=== PATIENT | male | born 1975 | race Caucasian/White ===

== ENCOUNTER 2021-02-11 11:14 | Outpatient (CLI) | payer BC, SELFPAY ==
--- NOTE | ~2021-02-11 | XR_ITS ---
XR chest 2V DATE: 02/11/2021 11:37 INDICATION: Cough. History of smoking for 20 years. TECHNIQUE: PA and lateral views COMPARISON: 08/07/2013 PA chest FINDINGS: Normal heart size. No hilar or mediastinal enlargement. Moderate hyperinflation of the lungs. No pulmonary infiltrate or consolidation, pleural effusion or p ulmonary vascular congestion or pneumothorax is detected. There is mild levoscoliosis of the thoracic spine. IMPRESSION: Moderate hyperinflation; no active cardiopulmonary disease Reviewed, dictated and finalized at location A. [facility]
== END 2021-02-11 11:15 | disposition home or self-care (01) ==
LOC: ANHIMG 11:23
PROVIDERS: PCP Family Medicine; Visit Provider Family Medicine
DX: R05.9 Cough, unspecified (principal); M41.9 Scoliosis, unspecified
CPT/HCPCS: 71046

== ENCOUNTER 2021-02-23 22:03 | Emergency (ER) | payer BC, SELFPAY ==
--- NOTE | ~2021-02-23 | XR_ITS ---
XR knee LT 2V DATE: 02/24/2021 01:21 INDICATION: Injury, generalized left knee pain TECHNIQUE: AP and crosstable lateral views COMPARISON: None FINDINGS: Large lipohemarthrosis is noted in association with a comminuted intra-articular fracture o f the lateral tibial plateau with up to 8 mm lateral displacement of the lateral fragments. IMPRESSION: Comminuted laterally displaced lateral tibial plateau fracture with prominent lipohemarth rosis Reviewed, dictated and finalized at location A. ING ALLEY ATTENDANT IMPRESSION: Comminuted laterally displaced lateral tibial plateau fracture with prominent lipohemarthrosis
[2021-02-23 22:15] VITALS: BP 161/73; PULSE 87; RESP 18; TEMP 36.7; O2SAT 100
[2021-02-24 01:48] VITALS: BP 189/100; PULSE 87; RESP 20; TEMP 36.3; O2SAT 97
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
[2021-02-24] MEDS: MORPHINE SULFATE (*CRX) 4 MG/ML INJ IV PUSH (02:40)
[2021-02-24 03:12] VITALS: BP 150/92; PULSE 84; RESP 17; O2SAT 96
== END 2021-02-24 03:14 | disposition short-term general hospital (02) ==
PROVIDERS: Emergency Provider Emergency Medicine; PCP Family Medicine
DX: S82.142A Displaced bicondylar fracture of left tibia, initial encounter for closed fracture (principal); F17.210 Nicotine dependence, cigarettes, uncomplicated; V86.56XA Driver of dirt bike or motor/cross bike injured in nontraffic accident, initial encounter
CPT/HCPCS: 73560; 96374; 99285; J2270

== ENCOUNTER 2021-03-14 14:47 | Outpatient (CLI) | payer BC, SELFPAY ==
--- NOTE | 2021-03-17 15:24 | WPDPFTINT ---
PFT Procedure Performed PFT Procedure Performed Spirometry with Pre/Post Bronchodilator Plethysmography (Lung Vol) Diffusing Cap (DLCO) Flow Vol Loop PFT Interpretation This is a pulmonary function test with pre and post-bronchodilator spirometry, plethysmography and diffusing capacity. The test was performed and results interpreted in accordance with the 2019 and 2005 ATS/ERS Task Force guidelines respectively using the Global Lung Function Initiative-2012 reference equations. Patient demonstrated good effort and cooperation. Reproducibility criteria were met. The quality of the pre bronchodilator spirometry maneuver was Grade A and post bronchodilator spirometry maneuver was Grade A. Findings: Spirometry: The contour the inspiratory and expiratory flow tracing are normal. The pre bronchodilator FVC is 5.99 L, 122% predicted. The pre bronchodilator FEV1 is 4.61 L, 118% predicted. The pre bronchodilator FEV1: FVC ratio is 77%. The post bronchodilator FVC is 5.93 L, representing 1% decrease. Post bronchodilator FEV1 is 4.72, representing a 2% increase. The post bronchodilator FEV1: FVC ratio was 80%. Plethysmography: The total lung capacity is 7.48 L, 111% predicted. The functional residual capacity is 3.03 L, 89% predicted. The residual volume is 1.49 L, 79% predicted. Diffusing capacity: The diffusion capacity on adjusted for hemoglobin is 27.9, 90% predicted. The diffusing capacity adjusted for alveolar volume is 3.91, 83% predicted. Impression: The spirometry is normal without evidence of an obstructive abnormality. There is no significant improvement after inhaling a single dose of albuterol. The lung volumes are normal. The diffusing capacity is normal. There are no prior studies for comparison
== END 2021-03-14 14:48 | disposition home or self-care (01) ==
LOC: ANHPFT 14:49
PROVIDERS: PCP Family Medicine; Visit Provider Nurse Practitioner Gerontology
DX: F17.210 Nicotine dependence, cigarettes, uncomplicated (principal)
CPT/HCPCS: 94060; 94726; 94729

== ENCOUNTER 2022-01-13 16:56 | Outpatient (CLI) | payer BC, SELFPAY ==
--- NOTE | ~2022-01-13 | XR_ITS ---
XR lumbar spine min 4V DATE: 01/13/2022 17:28 INDICATION: Twisted back. Back pain, radiculopathy. TECHNIQUE: Standing AP, lateral, coned lateral lumbosacral and bilateral oblique views COMPARISON: None FINDINGS: There is approximately 30 degrees rotatory dextroscoliosis of the lower thoracic and lumbar spine. No spondylolysis or spondylolisthesis. No fracture or bone destruction. There is multilevel moderate degenerative disc disease at L1-2 through L3-4, mild degenerative disease at L4-5, relatively sparing L5-S1. The sacroiliac joints are intact. IMPRESSION: Approximately 30 degrees rotatory dextroscoliosis of the thoracolumbar spine Moderate degenerative disc disease at L1-2 through L3-4, mild degenerative disc disease at L4-5, with relative sparing of L5-S1 Reviewed, dictated and finalized at location B. ICAL DRESSING MAKER IMPRESSION: Approximately 30 degrees rotatory dextroscoliosis of the thoracolum bar spine Moderate degenerative disc disease at L1-2 through L3-4, mild degenerative disc disease at L4-5, with relative sparing of L5-S1
== END 2022-01-13 16:57 | disposition home or self-care (01) ==
PROVIDERS: PCP Family Medicine; Visit Provider Family Medicine
DX: M51.16 Intervertebral disc disorders with radiculopathy, lumbar region (principal); M41.9 Scoliosis, unspecified; T14.90XA Injury, unspecified, initial encounter
CPT/HCPCS: 72110

== ENCOUNTER 2024-04-26 08:30 | Outpatient (CLI) | payer BC, SELFPAY ==
--- OUTSIDE RECORDS SUMMARY | 2024-04-26 08:59 | XMS_ITS | Clinical Summary ---
Author Organization [facility] Address [address] [place] [address] Care Team Providers Care Supervisor Statement Clerks Name Role Phone Unavailable Primary Care Provider Unavailabl e Social History Tobacco Use Types Packs/Day Years Used Date Smoking Tobacco: Never Assessed Sex and Gender Information Value Date Recorded Sex Assigned at Not on file Legal Sex Male 8:27 PM CDT Gender Identity Not on file Sexual Orientation Not on file Plan of Treatment Health Maintenance Due Date Last Done Comments Colorectal Cancer Screening Colonoscopy (10 Years) 1975 Annual Physical 1978 Hepatitis C 1993 DTaP, Tdap and Td Vaccines ( 1 - Tdap) 1994 Hepatitis B Vaccines (1 of 3 - 19+ 3-dose series) 1994 COVID-19 Vaccine (2023-2 5 season) 2023 Influenza Adult (#1) 2023 Meningococcal B Vaccine Aged Out No l onger eligible based on patient's age to complete this topic Meningococcal Vaccine Aged Out No madi elen eligible based on patient's age to complete this topic Pneumococcal Vaccine: Pediat rics (0 to 5 Years) and At-Risk Patients (6 to 64 Years) Aged Out No longer eligible b ased on patient's age to complete this topic RSV Immunizations Under 20 Months Aged Out No longer eligible based on patient's age to complete this topic
--- OUTSIDE RECORDS SUMMARY | 2024-04-26 08:59 | XMS_ITS | Referral Summary ---
Author Organization [facility] Address [address] [place] [address] Care Team Providers Care Dean Of Students Name Role Phone Kay Guardado MD Primary Care Provider Allergies No known active allergies Medications cyclobenzaprine (FLEXERIL) 10 mg tabletIndicatio ns:Muscle Spasm Take 1 tablet (10 mg total) by mouth nightly as needed for muscle spasms 5 tablet 2 Active clobetasoL (TEMOVATE) 0.05 % cream Apply topically as needed 2 Active multivitamin capsuleIndicati ons:Vitamin Deficiency Prevention Take 1 capsule by mouth daily Active cholecalciferol (VITAMIN D-3) 5,000 unit capsuleIndicati ons:Vitamin D Deficiency Take 5,000 Units by mouth daily Active zinc 50 mg tabletIndicatio ns:supplement Take 1 tablet by mouth daily Active varenicline (CHANTIX AMY) 0.5 mg (11)- 1 mg (42) tabletIndicatio ns:Smoking Cessation Take by mouth daily Active esomeprazole DR (NexIUM) 40 mg capsule Take 1 capsule (40 mg total) by mouth daily before breakfast To protect stomach while taking aspirin. 14 capsule 2 Active senna-docusate (PERICOLACE) 8.6-50 mg Take 1 tablet by mouth daily 30 tablet 1 2 Active HYDROcodone-nga taminophen (NORCO) 5-325 mg per tabletIndicatio ns:Pain Take 1 tablet by mouth every 6 (six) hours as needed for pain 28 tablet 2 Active Active Problems Problem Noted Date Diagnosed Date Fracture of tibial plateau 02/24/2021 Overview (02/24/2021): Added automatically from request for surgery [id number] Immunizations Immunization Administration Dates Next Due Tdap 02/24/2021 Social History Tobacco Use Types Packs/Day Years Used Date Smoking Tobacco: Every Day Cigarettes Smokeless Tobacco: Never Tobacco Cessation:Ready to Q uit: No; Counseling Given: No AUDIT-C Answer Date Recorded Q1: How often do you have a drink containing alc ohol? 2-4 times a month 02/24/2021 Q2: How many drinks containi ng alcohol do you have on a typical day when you are drinking? 5 or 6 02/24/2021 Q3: How often do you have si x or more drinks on one occasion? Never 02/24/2021 Sex and Gender Information Value Date Recorded Sex Assigned at Not on file Legal Sex Male 3:48 PM BUTTONER Gender Identity Not on file Sexual Orientation Not on file Last Filed Vital Signs Vital Sign Reading Time Taken Comments Blood Pressure 125/104 02/27/2021 1:20 PM BUTTONER Pulse 80 02/27/2021 1:20 PM BUTTONER Temperature 36.4 C (97.5 F) 02/27/2021 10:30 AM BUTTONER Respiratory Rate 17 02/27/2021 1:20 PM BUTTONER Oxygen Saturation 100% 02/27/2021 1:20 PM BUTTONER Inhaled Oxygen Concentration - - Weight 106.6 kg (235 lb) 02/24/2021 4:20 PM BUTTONER Height 177.8 cm (5' 10 ) 02/24/2021 4:20 PM BUTTONER Body Mass Index 33.72 02/24/2021 4:20 PM BUTTONER Plan of Treatment Not on file Medical Devices Implanted Type Area Sawdust Machine Operator Device Identifier Shelf Expiration Date Model / Serial / Lot Alexandra [employer] Nephew/Richco/Ort ho [id number] Evos 3.5mm 60mm Self Tap Lock Screw Bone Sterile - [id number] Implanted:Qty: 1 on 02/27/2021 by Maddison Calvert MD at [facility] Left: Leg Alexandra [employer] Nephew/Richco/O rtho [id number] / / Synthes 07.704.005s Norian Drillable Inject Reinforced Bioresorbable Biocompatible - [id number] Implanted:Qty: 1 on 02/27/2021 by Maddison Calvert MD at [facility] Left: Leg Synthes I [id number] 03/07/2022 07.704.005S / / Alexandra [employer] Nephew/Richco/Ort ho [id number] Evos 113x11.5x3.6mm 32.3x1.9mm 8 Hole Low Profile Variable Angle - [id number] Implanted:Qty: 1 on 02/27/2021 by Maddison Calvert MD at [facility] Left: Leg [employer] Nephew/Richco/O rtho [id number] / / Alexandra [employer]hew/Richco/Ort ho [id number] Evos 3.5mm 42mm Self Tap Cortex Screw Bone Sterile - [id number] Implanted:Qty: 1 on 02/27/2021 by Maddison Calvert MD at [facility] Left: Leg [employer]hew/Richco/O rtho [id number] / / Alexandra [employer]hew/Richco/Ort ho [id number] Evos 3.5mm 34mm Self Tap Cortex Screw Bone Sterile - [id number] Implanted:Qty: 2 on 02/27/2021 by Maddison Calvert MD at [facility] Left: Leg [employer]hew/Richco/O rtho [id number] / / Alexandra [employer]hew/Richco/Ort ho [id number] Evos 3.5mm 80mm Self Tap Lock Screw Bone Sterile - [id number] Implanted:Qty: 3 on 02/27/2021 by Maddison Calvert MD at [facility] Left: Leg [employer]hew/Richco/O rtho [id number] / / Explanted Type Area Sawdust Machine Operator Device Identifier Shelf Expiration Date Model / Serial / Lot [employer] [id number] K Wire Fix Trocar Point Smooth Sgl End Ss 0.983f8po - [id number] Explanted:Qty: 4 on 02/27/2021 at [facility] [employer] [id number] / / [employer] [id number] Janak .062in 9in Trocar Point One End Orthopedic Wire - [id number] Explanted:Qty: 3 on 02/27/2021 at [facility] Left: Leg [employer] [id number] / / Alexandra [employer] Nephew/Richco/Or tho [id number] Evos 3.5mm 50mm Self Tap Cortex Screw Bone Sterile - [id number] Explanted:Qty: 1 on 02/27/2021 at [facility] Left: Leg [employer]hew/Richco/Or tho [id number] / / Alexandra [employer] Nephew/Richco/Or tho [id number] Evos 3.5mm 38mm Self Tap Cortex Screw Bone Sterile - [id number] Explanted:Qty: 1 on 02/27/2021 at [facility] Left: Leg [employer]hew/Richco/Or tho [id number] / / Procedures Procedure Name Priority Date/Time Associated Diagnosis Comments HEPATITIS C ANTIBODY Routine 02/27/2021 5:03 PM BUTTONER from Last 3 Months or Most Recently Relevant to Health Maintenance Results * Hepatitis C antibody (02/27/2021 5:03 PM BUTTONER) Hep C Ab Nonreactive Nonreactive [facility] Comment:Antibodies to HCV no t detected. Does NOT exclude the possibility of recent exposure to HCV. Blood 02/27/2021 5:03 PM BUTTONER 02/27/2021 5:22 PM BUTTONER us Notinfile Unknown LAB MICROBIOLOGY - GENERAL ORD ERABLES Edited Result - Final [facility] Department [place] [address] from Last 3 Months or Most Recently Relevant to Health Maintenance Insurance [employer] Address: [address] [place] [address] [place] Care Teams Dean Of Students Relationship Specialty Start Date End Date Kay Guardado MD [address] [facility] [address] [place] [address] PCP - General 02/24/21
--- OUTSIDE RECORDS SUMMARY | 2024-04-26 08:59 | XMS_ITS | Clinical Summary ---
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 Gender Identity Not on file Sexual Orientation Not on file Obstetrics History Last Filed Vital Signs Vital Sign Reading Time Taken Comments Blood Pressure 125/104 02/27/2021 1:20 PM SHOEMAKER APPRENTICE Pulse 80 02/27/2021 1:20 PM SHOEMAKER APPRENTICE Temperature 36.4 C (97.5 F) 02/27/2021 10:30 AM SHOEMAKER APPRENTICE Respiratory Rate 17 02/27/2021 1:20 PM SHOEMAKER APPRENTICE Oxygen Saturation 100% 02/27/2021 1:20 PM SHOEMAKER APPRENTICE Inhaled Oxygen Concentration - - Weight 106.6 kg (235 lb) 02/24/2021 4:20 PM SHOEMAKER APPRENTICE Height 177.8 cm (5' 10 ) 02/24/2021 4:20 PM SHOEMAKER APPRENTICE Body Mass Index 33.72 02/24/2021 4:20 PM SHOEMAKER APPRENTICE Plan of Treatment Health Maintenance Due Date Last Done Comments Colon Cancer Screening-Colonoscopy 1975 Depression Screening 1975 Hepatitis B Screening 1993 Regular Well Visit/Exam 18-64 1993 Pneumococcal vaccine <65 (1 of 2 - PCV) 1994 Influenza Vaccine (#1) 2023 DTaP/Tdap/Td Vaccine (2 - Td or Tdap) 02/24/2031 Hepatitis C Screening Completed 02/27/2021 Medical Devices Implanted Type Area Office Electrician Device Identifier Shelf Expiration Date Model / Serial / Lot [employer]/Richco/Ort ho [id number] Evos 3.5mm 60mm Self Tap Lock Screw Bone Sterile - [id number] Implanted:Qty: 1 on 02/27/2021 by Maddison Calvert MD at [facility] Left: Leg [employer] Nephew/Richco/O rtho [id number] / / Synthes 07.704.005s Norian Drillable Inject Reinforced Bioresorbable Biocompatible - [id number] Implanted:Qty: 1 on 02/27/2021 by Maddison Calvert MD at [facility] Left: Leg Synthes I [id number] 03/07/2022 07.704.005S / / Alexandra [employer] Nephew/Richco/Ort ho [id number] Evos 113x11.5x3.6mm 32.3x1.9mm 8 Hole Low Profile Variable Angle - [id number] Implanted:Qty: 1 on 02/27/2021 by Maddison Calvert MD at [facility] Left: Leg [employer]hew/Richco/O rtho [id number] / / Alexandra [employer] Nephew/Richco/Ort ho [id number] Evos 3.5mm 42mm Self Tap Cortex Screw Bone Sterile - [id number] Implanted:Qty: 1 on 02/27/2021 by Maddison Calvert MD at [facility] Left: Leg [employer]hew/Richco/O rtho [id number] / / Alexandra [employer] Nephew/Richco/Ort ho [id number] Evos 3.5mm 34mm Self Tap Cortex Screw Bone Sterile - [id number] Implanted:Qty: 2 on 02/27/2021 by Maddison Calvert MD at [facility] Left: Leg [employer]hew/Richco/O rtho [id number] / / Alexandra [employer] Nephew/Richco/Ort ho [id number] Evos 3.5mm 80mm Self Tap Lock Screw Bone Sterile - [id number] Implanted:Qty: 3 on 02/27/2021 by Maddison Calvert MD at [facility] Left: Leg [employer] Nephew/Richco/O rtho [id number] / / Explanted Type Area Office Electrician Device Identifier Shelf Expiration Date Model / Serial / Lot [employer] [id number] K Wire Fix Trocar Point Smooth Sgl End Ss 0.149y0bl - [id number] Explanted:Qty: 4 on 02/27/2021 at [facility] [employer] [id number] / / [employer] [id number] Janak .062in 9in Trocar Point One End Orthopedic Wire - [id number] Explanted:Qty: 3 on 02/27/2021 at [facility] Left: Leg [employer] [id number] / / Alexandra [employer] Nephew/Richco/Or tho [id number] Evos 3.5mm 50mm Self Tap Cortex Screw Bone Sterile - [id number] Explanted:Qty: 1 on 02/27/2021 at [facility] Left: Leg [employer]hew/Richco/Or tho [id number] / / Alexandra [employer]hew/Rich[employer]/Or tho [id number] Evos 3.5mm 38mm Self Tap Cortex Screw Bone Sterile - [id number] Explanted:Qty: 1 on 02/27/2021 at [facility] Left: Leg [employer] Nephew/Richco/Or tho [id number] / / Procedures Procedure Name Priority Date/Time Associated Diagnosis Comments HEPATITIS C ANTIBODY Routine 02/27/2021 5:03 PM SHOEMAKER APPRENTICE from Last 3 Months or Most Recently Relevant to Health Maintenance Results * Hepatitis C antibody (02/27/2021 5:03 PM SHOEMAKER APPRENTICE) Hep C Ab Nonreactive Nonreactive [facility] Comment:Antibodies to HCV no t detected. Does NOT exclude the possibility of recent exposure to HCV. Blood 02/27/2021 5:03 PM SHOEMAKER APPRENTICE 02/27/2021 5:22 PM SHOEMAKER APPRENTICE us Notinfile Unknown LAB MICROBIOLOGY - GENERAL ORD ERABLES Edited Result - Final [facility] One [facility] Department [place] [address] from Last 3 Months or Most Recently Relevant to Health Maintenance Insurance [employer] Address: [facility] [address] [place] [address] [place] Care Teams Cylinder Inspector And Tester Relationship Specialty Start Date End Date Kay Guardado MD [address] [facility] [address] [place] [address] PCP - General 02/24/21
[2024-04-26 09:05] LABS: Hemoglobin 15.7 g/dL (14.0-18.0); Mean Corpuscular HGB Conc 34.1 g/dl (32-36); Mean Corpuscular Hemoglobin 31.1 pg (26-34); Mean Corpuscular Volume 91.1 fl (80-100); Platelet Count Result 265 k/mm3 (150-375); Red Blood Count 5.05 M/mm3 (4.6-6.20); Red Cell Distribution Width 12.4 % (11.5-14.5)
[2024-04-26 09:18] LABS: Add Urine Microscopic? YES; Appearance Urine Clear (Clear); Bacteria Urine None Seen /hpf; Bilirubin Urine Negative (Negative); Blood Urine Negative (Negative); Color Urine Yellow (Yellow); Glucose Urine UA Negative (Negative); Ketones Urine Negative (Negative); Leukocyte Esterase Ur Negative LEU/UL (Negative); Mucus Urine Present /lpf; Need Manual Microscopic Reviewed; Nitrate Urine Negative (Negative); Non Pathogenic Casts 0-2; Protein Urine Trace mg/dL (Negative); Specific Grav Ur 1.028 (1.001-1.035); Squamous Epithelial Cell Urine None Seen /hpf (Few); WBC Urine 0-5 /hpf (0-3); pH Urine 6.5 (5.0-9.0)
[2024-04-26 09:27] LABS: Alanine Aminotransferase 30 U/L (6-50); Albumin Level 4.5 g/dL (3.5-5.1); Alkaline Phosphatase 92 U/L (38-126); Anion Gap 8 mmol/L (4-12); Aspartate Amino Transferase 30 U/L (17-59); Bilirubin,Total 0.7 mg/dL (0.2-1.3); Blood Urea Nitrogen 14 mg/dL (9-20); Calcium 9.6 mg/dL (8.4-10.2); Carbon Dioxide 29 mmol/L (22-30); Chloride 104 mmol/L (98-107); Cholesterol 183 mg/dL (0-200); Estimated Glomerular Filt Rate > 60; Glucose 104 mg/dL (65-110); HDL Direct 38 mg/dL; Sodium 141 mmol/L (137-145); Triglycerides 187 mg/dL (<150)
[2024-04-26 09:38] LABS: LDL Cholesterol Direct 106 mg/dL
== END 2024-04-26 08:31 | disposition home or self-care (01) ==
LOC: ANHLAB 08:33
PROVIDERS: PCP Family Medicine; Visit Provider Physician Assistant Medical
DX: Z00.00 Encounter for general adult medical examination without abnormal findings (principal); E78.5 Hyperlipidemia, unspecified
CPT/HCPCS: 36415; 80053; 80061; 81001; 84443; 85027

== ENCOUNTER 2024-06-12 02:50 | Day surgery (SDC) | payer BC, SELFPAY ==
[2024-05-29 13:24] VITALS: BMI 35.9
--- OUTSIDE RECORDS SUMMARY | 2024-06-12 02:53 | XMS_ITS | Referral Summary ---
Author Organization [facility] Address [address] [place] [address] Care Team Providers Care Literature Professor Name Role Phone Kay Guardado MD Primary [...] (02/24/2021): Added automatically from request for surgery [id number] Immunizations Immunization Administration Dates Next Due Tdap [...] on file Legal Sex Male 3:48 PM INTEL RECRUITER Gender Identity Not on file Sexual Orientation Not on file Last Filed Vital Signs Vital Sign Reading Time Taken Comments Blood Pressure 125/104 02/27/2021 1:20 PM INTEL RECRUITER Pulse 80 02/27/2021 1:20 PM INTEL RECRUITER Temperature 36.4 C (97.5 F) 02/27/2021 10:30 AM INTEL RECRUITER Respiratory Rate 17 02/27/2021 1:20 PM INTEL RECRUITER Oxygen Saturation 100% 02/27/2021 1:20 PM INTEL RECRUITER Inhaled Oxygen Concentration - - Weight 106.6 kg (235 lb) 02/24/2021 4:20 PM INTEL RECRUITER Height 177.8 cm (5' 10 ) 02/24/2021 4:20 PM INTEL RECRUITER Body Mass Index 33.72 02/24/2021 4:20 PM INTEL RECRUITER Plan of Treatment Not on file Medical Devices Implanted Type Area Hard Rock Miner Blasting Device Identifier Shelf Expiration Date Model / Serial / Lot [employer]andra [employer]/Richco/Ort ho [id number] Evos 3.5mm 60mm Self Tap Lock Screw Bone Sterile - [id number] Implanted:Qty: 1 on 02/27/2021 by Maddison Calvert MD at [facility] Left: Leg Alexandra [employer] Nephew/Richco/O rtho [id number] / / Synthes 07.704.005s Norian Drillable Inject Reinforced Bioresorbable Biocompatible - [id number] Implanted:Qty: 1 on 02/27/2021 by Maddison Calvert MD at [facility] Left: Leg Synthes I [id number] 03/07/2022 07.704.005S / / Alex[employer]/Richco/Ort ho [id number] Evos 113x11.5x3.6mm 32.3x1.9mm 8 Hole Low Profile Variable Angle - [id number] Implanted:Qty: 1 on 02/27/2021 by Maddison Calvert MD at [facility] Left: Leg [employer]/Rich[employer]/O rtho [id number] / / [employer]/Rich[employer]/Ort ho [id number] Evos 3.5mm 42mm Self Tap Cortex Screw Bone Sterile - [id number] Implanted:Qty: 1 on 02/27/2021 by Maddison Calvert MD at [facility] Left: Leg [employer]/Rich[employer]/O rtho [id number] / / [employer]/Rich[employer]/Ort ho [id number] Evos 3.5mm 34mm Self Tap Cortex Screw Bone Sterile - [id number] Implanted:Qty: 2 on 02/27/2021 by Maddison Calvert MD at [facility] Left: Leg [employer]/Rich[employer]/O rtho [id number] / / [employer]/Rich[employer]/Ort ho [id number] Evos 3.5mm 80mm Self Tap Lock Screw Bone Sterile - [id number] Implanted:Qty: 3 on 02/27/2021 by Maddison Calvert MD at [facility] Left: Leg [employer]/Rich[employer]/O rtho [id number] / / Explanted Type Area Hard Rock Miner Blasting Device Identifier Shelf Expiration Date Model / Serial / Lot [employer] [id number] K Wire Fix Trocar Point Smooth Sgl End Ss 0.006q8ka - [id number] Explanted:Qty: 4 on 02/27/2021 at [facility] [employer] [id number] / / [employer] [id number] Janak .062in 9in Trocar Point One End Orthopedic Wire - [id number] Explanted:Qty: 3 on 02/27/2021 at [facility] Left: Leg [employer] [id number] / / Alex[employer]hew/Richco/Or tho [id number] Evos 3.5mm 50mm Self Tap Cortex Screw Bone Sterile - [id number] Explanted:Qty: 1 on 02/27/2021 at [facility] Left: Leg [employer]/Rich[employer]/Or tho [id number] / / [employer]/Rich[employer]/Or tho [id number] Evos 3.5mm 38mm Self Tap Cortex Screw Bone Sterile - [id number] Explanted:Qty: 1 on 02/27/2021 at [facility] Left: Leg [employer]/Rich[employer]/Or tho [id number] / / Insurance [employer] Address: [address] [place] [address] [facility] [place]PO [place] Care Teams Literature Professor Relationship Specialty Start Date End Date Kay Guardado MD [address] [facility] [[email or web address] [address] [place] [address] PCP - General 02/24/21
--- OUTSIDE RECORDS SUMMARY | 2024-06-12 02:53 | XMS_ITS | Clinical Summary ---
Author Organization [facility] Address [address] [place] [id number] Care Team Providers Care Senior Analytical Chemist Name Role Phone Unavailable Primary Care Provider [...] 1994 COVID-19 Vaccine (2023-2 5 season) 2023 Meningococcal B Vaccine Aged Out No l onger eligible based on patient's age to complete this topic Meningococcal Vaccine Aged Out No madi elen eligible based on patient's age to complete this topic Pneumococcal Vaccine: Pediat rics (0 to 5 Years) and At-Risk Patients (6 to 49 Years) Aged Out No longer eligible b ased on patient's age to complete this topic RSV Immunizations Under 20 Months Aged Out No longer eligible based on patient's age to complete this topic
--- OUTSIDE RECORDS SUMMARY | 2024-06-12 02:53 | XMS_ITS | Clinical Summary ---
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 Gender Identity Not on file Sexual Orientation Not on file Obstetrics History Last Filed Vital Signs Vital Sign Reading Time Taken Comments Blood Pressure 125/104 02/27/2021 1:20 PM MUNICIPAL BOND TRADER Pulse 80 02/27/2021 1:20 PM 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 TRADER Temperature 36.4 C (97.5 F) 02/27/2021 10:30 AM MUNICIPAL BOND TRADER Respiratory Rate 17 02/27/2021 1:20 PM MUNICIPAL BOND TRADER Oxygen Saturation 100% 02/27/2021 1:20 PM MUNICIPAL BOND TRADER Inhaled Oxygen Concentration - - Weight 106.6 kg (235 lb) 02/24/2021 4:20 PM MUNICIPAL BOND TRADER Height 177.8 cm (5' 10 ) 02/24/2021 4:20 PM MUNICIPAL BOND TRADER Body Mass Index 33.72 02/24/2021 4:20 PM MUNICIPAL BOND TRADER Plan of Treatment Not on file Medical Devices Implanted Type Area Drapery And Upholstery Measurer Device Identifier Shelf Expiration Date Model / Serial / Lot [employer]Rich[employer]/Ort [id number] Evos 3.5mm 60mm Self Tap Lock Screw Bone Sterile - [id number] Implanted:Qty: 1 on 02/27/2021 by Maddison Calvert MD at [facility] Left: Leg [employer]/Rich[employer]/O rtho [id number] / / Synthes 07.704.005s Norian Drillable Inject Reinforced Bioresorbable Biocompatible - [id number] Implanted:Qty: 1 on 02/27/2021 by Maddison Calvert MD at [facility] Left: Leg Synthes I [id number] 03/07/2022 07.704.005S / / [employer]/Rich[employer]/Ort ho [id number] Evos 113x11.5x3.6mm 32.3x1.9mm 8 Hole Low Profile Variable Angle - [id number] Implanted:Qty: 1 on 02/27/2021 by Maddison Calvert MD at [facility] Left: Leg [employer]/O rtho [id number] / / [employer]hew/Rich[employer]/Ort ho [id number] Evos 3.5mm 42mm Self Tap Cortex Screw Bone Sterile - [id number] Implanted:Qty: 1 on 02/27/2021 by Maddison Calvert MD at [facility] Left: Leg [employer]hew/Rich[employer]/O rtho [id number] / / Alex[employer]hew/Rich[employer]/Ort ho [id number] Evos 3.5mm 34mm Self Tap Cortex Screw Bone Sterile - [id number] Implanted:Qty: 2 on 02/27/2021 by Maddison Calvert MD at [facility] Left: Leg [employer]hew/Rich[employer]/O rtho [id number] / / Alexandra [employer]hew/Rich[employer]/Ort ho [id number] Evos 3.5mm 80mm Self Tap Lock Screw Bone Sterile - [id number] Implanted:Qty: 3 on 02/27/2021 by Maddison Calvert MD at [facility] Left: Leg [employer]hew/Rich[employer]/O rtho [id number] / / Explanted Type Area Drapery And Upholstery Measurer Device Identifier Shelf Expiration Date Model / Serial / Lot [employer] [id number] K Wire Fix Trocar Point Smooth Sgl End Ss 0.311w0sp - [id number] Explanted:Qty: 4 on 02/27/2021 at [facility] [employer] [id number] / / [employer] [id number] Janak .062in 9in Trocar Point One End Orthopedic Wire - [id number] Explanted:Qty: 3 on 02/27/2021 at [facility] Left: Leg [employer] [id number] / / Alex[employer]hew[employer]Rich[employer]/Or tho [id number] Evos 3.5mm 50mm Self Tap Cortex Screw Bone Sterile - [id number] Explanted:Qty: 1 on 02/27/2021 at [facility] Left: Leg [employer]/Or tho [id number] / / Alexandra [employer]hew/Rich[employer]/Or tho [id number] Evos 3.5mm 38mm Self Tap Cortex Screw Bone Sterile - [id number] Explanted:Qty: 1 on 02/27/2021 at [facility] Left: Leg [employer]hew/Rich[employer]/Or tho [id number] / / Insurance [facility] [place] Care Teams Human Resources Project Coordinator Relationship Specialty Start Date End Date Kay Guardado MD [address] [facility] [address] [place] [address] PCP - General 02/24/21
[2024-06-12 13:46] VITALS: BP 130/90; PULSE 80; RESP 18; TEMP 36.1; O2SAT 100
[2024-06-12] MEDS: LACTATED RINGERS 1,000 ML 150 ML IV CONT (14:01)
--- NOTE | 2024-06-12 14:12 | P.PNAN_ITS ---
Anes - Initial Pre Proc Eval Procedure: Operation Date: 06/12/24 14:30 Proposed Procedures p Colonoscopy - Alex Peañ MD Date/Time: 06/12/24 14:12 Surgeon: Alex Peña MD Pre Op Diagnosis: Encounter for screening for malignant neoplasm of Patient Data Age: 49 Gender: M Height: 1.78 m Weight: 113.2 kg Last Vital Signs Temp 97 F L 06/12/24 13:46 Pulse 80 06/12/24 13:46 Resp 18 06/12/24 13:46 BP 130/90 06/12/24 13:46 Pulse Ox 100 06/12/24 13:46 O2 Del Method Room Air 06/12/24 13:46 Allergies Allergy/AdvReac Type Severity Reaction Status Date / Time No Known Allergies Allergy Verified 06/12/24 13:40 Home Medications ?Medication ?Instructions ?Recorded ?Confirmed ?Type varenicline tartrate 0.5 mg (11)-1 See Rx Instructions PO PER PKG DIR 04/26/24 05/29/24 Rx mg (42) tablets in a dose pack #53 ea multivitamin (Daily Multi-Vitamin 1 tablet PO DAILY 05/29/24 05/29/24 History tablet) Patient hx anesthesia problems: none Family hx anesthesia problems: none Results Review: All pre-operative results and documents have been reviewed as part of the pre- operative evaluation. [facility] Past Medical History Medical History Tobacco use disorder Eczema of both hands Surgical History Surgical History No pertinent past surgical history Family History Family History Father Heart disease Acute myocardial infarction, Onset Age: 50 S/P CABG x 2 Mother Breast cancer Social History Social History Social History: Smoking packs per day: 1 Smoking cigarettes per day: 20.0 Years smoked: 27 Smoking pack-years: 27.00 Smoking status: Current every day smoker Tobacco type: cigarettes Second hand tobacco smoke exposure: Yes Additional smoking assessment comments: taking chantix Alcohol intake: current Drinks per week: 10 Substance use: never Substance use type: does not use Do You Feel Safe in your Home?: Yes Lack of Transportation: No Lack of Food: Never True Current Housing: I Have Housing Concerned About Future Housing: No Difficulty Paying Gas/Electric Bills: No Difficulty Paying for Meds: No Currently Unemployed: No Education: Don't Know Difficulty w/ Childcare or Family Care: No Living arrangements: with family Occupation/Education: occupation Gender identity (if verbalized by the patient): Male Sexual Orientation (if Verbalized by the Patient): Straight or Heterosexual Spiritual care concerns: No Anes - Eval Final PreProcedure Day of Procedure 06/12/24 14:12 Patient weight: obese Lungs: normal air movement Airway: Mallampati scale class II Neurological: alert and oriented Last oral intake: >/= 8 hours ASA classification: II Emergent: no Anesthetic plan: proceed Anesthesia type and monitoring: general GIVS and standard monitoring Results Review: All pre-operative results and documents have been reviewed as part of the pre-o perative evaluation. Obese BMI 35, active smoker, 1/2 ppd and smoked at 1300 today. Informed Consent: The patient's anesthetic plan and its attendant risks and benefits were discussed with the patient/family/POA. Questions were solicited and answers provided to the satisfaction of the patient/family/POA.
--- NOTE | 2024-06-12 14:34 | PM.HPGS ---
History of Present Illness History of Present Illness Consent: Risks, benefits, and alternatives have been discussed and questions answered. Patient agrees to proceed with procedure. Chief complaint: Encounter for screening for malignant neoplasm of Narrative: Kurt Vasquez is a 49 year old male here for first screening colonoscopy Review of Systems Review of Systems: All systems reviewed & are unremarkable except as noted in HPI and below PMFSH Past Medical History Medical History (Updated 06/12/24 @ 14:35 by Alex Peña MD) Colon cancer screening Tobacco use disorder Eczema of both hands Surgical History Surgical History No pertinent past surgical history Family History Family History Father Heart disease Acute myocardial infarction, Onset Age: 50 S/P CABG x 2 Mother Breast cancer Social History Social History Social History: Smoking packs per day: 1 Smoking cigarettes per day: 20.0 Years smoked: 27 Smoking pack-years: 27.00 Smoking status: Current every day smoker Tobacco type: cigarettes Second hand tobacco smoke exposure: Yes Additional smoking assessment comments: taking chantix Alcohol intake: current Drinks per week: 10 Substance use: never Substance use type: does not use Do You Feel Safe in your Home?: Yes Lack of Transportation: No Lack of Food: Never True Current Housing: I Have Housing Concerned About Future Housing: No Difficulty Paying Gas/Electric Bills: No Difficulty Paying for Meds: No Currently Unemployed: No Education: Don't Know Difficulty w/ Childcare or Family Care: No Living arrangements: with family Occupation/Education: occupation Gender identity (if verbalized by the patient): Male Sexual Orientation (if Verbalized by the Patient): Straight or Heterosexual Spiritual care concerns: No Meds Home Medications and Allergies Home Medications ?Medication ?Instructions ?Recorded ?Confirmed ?Type varenicline tartrate 0.5 mg (11)-1 See Rx Instructions PO PER PKG DIR 04/26/24 05/29/24 Rx mg (42) tablets in a dose pack #53 ea multivitamin (Daily Multi-Vitamin 1 tablet PO DAILY 05/29/24 05/29/24 History tablet) Allergies Allergy/AdvReac Type Severity Reaction Status Date / Time No Known Allergies Allergy Verified 06/12/24 13:40 Vital Signs Vital Signs - 24 hr 06/12/24 13:46 Temperature 97 F L Pulse Rate 80 Respiratory Rate 18 Blood Pressure 130/90 Pulse Oximetry 100 Oxygen Delivery Room Air Exam Const: General: comfortable and no acute distress HENMT: Face/Nose/Sinus: Normal nares present Eyes: General: appearance normal, both eyes and all related structures Neck: Neck: no JVD Resp: Auscultation: clear to auscultation bilaterally Cardio: Rate: regular rate Rhythm: regular rhythm GI: Inspection: non-distended GI Palp: Yes Soft to palpation Skin: General skin exam: normal color Neuro: General: gait normal Speech: normal speech Extrem: General: normal to inspection Psych: Mental Status: mental status grossly normal Assessment and Plan Assessment and plan (1) Colon cancer screening: Code(s): Z12.11 - Encounter for screening for malignant neoplasm of colon Status: Acute Assessment and Plan: colonoscopy
[2024-06-12 14:53] VITALS: BP 142/78; PULSE 91; RESP 26; O2SAT 97
[2024-06-12 15:03] VITALS: BP 124/82; PULSE 85; RESP 24; O2SAT 98
[2024-06-12 15:13] VITALS: BP 125/79; PULSE 71; RESP 25; O2SAT 100
== END 2024-06-12 15:22 | disposition home or self-care (01) ==
PROVIDERS: PCP Family Medicine; Referring Provider Physician Assistant Medical; Visit Provider Internal Medicine Gastroenterology
PROC: 0DJD8ZZ Inspection of Lower Intestinal Tract, Via Natural or Artificial Opening Endoscopic (ICD-10-PCS; CPT 45378; principal; 2024-06-12 14:30)
DX: Z12.11 Encounter for screening for malignant neoplasm of colon (principal); D12.2 Benign neoplasm of ascending colon; K63.5 Polyp of colon; K64.8 Other hemorrhoids; K57.30 Diverticulosis of large intestine without perforation or abscess without bleeding; F17.210 Nicotine dependence, cigarettes, uncomplicated; E66.9 Obesity, unspecified; Z68.35 Body mass index [BMI] 35.0-35.9, adult; Z80.3 Family history of malignant neoplasm of breast; Z82.49 Family history of ischemic heart disease and other diseases of the circulatory system
CPT/HCPCS: 45385; 88305; J2704; J7120